=== PATIENT | male | born 1995 | race Caucasian/White ===

== ENCOUNTER 2019-02-24 14:43 | Emergency (ER) | payer OTHER ==
[2019-02-24] MEDS ORDERED: DIPH,PERTUS(ACELL)TETVAC-LF 0.5 ML VIAL IM ONE (15:09)
[2019-02-24 15:12] VITALS: RESP 18; TEMP 98.2
--- NOTE | 2019-02-24 15:26 | XR ---
EXAMINATION TYPE: XR foot complete LT DATE OF EXAM: 02/24/2019 CLINICAL HISTORY: Laceration to left great toe from chainsaw TECHNIQUE: Frontal, lateral, and oblique images of the left foot are obtained. COMPARISON: None FINDINGS: There is no acute fracture/dislocation evident in the left foot. The joint spaces in the left foot appear within normal limits. Soft tissue laceration medial to the first distal metatarsal h ead is seen without osseous laceration or radiopaque foreign body. Incidentally noted Chin's toe. IMPRESSION: Soft tissue laceration medial to the distal first metatarsal head without osseous lacerat ion or radiopaque foreign body.
[2019-02-24] MEDS ORDERED: LIDOCAINE 1% INJ 10MG/ML (20 ML MDV) SQ ONE (15:32)
--- NOTE | 2019-02-24 16:28 | ED ---
Wound/Laceration HPI - General Chief Complaint: Wound/Laceration Stated Complaint: Foot laceration W/Chainsaw Time Seen by Provider: 02/24/19 15:16 Source: patient Mode of arrival: ambulatory Limitations: no limitations - History of Present Illness Initial Comments: Patient is a 24-year-old male presenting to emergency Department with complaints of a laceration to the top of his left foot. Patient states he was trimming some small trees when the chainsaw he was using slipped and he hit the top of his left foot. Patient states he was wearing thick boots when this happened. Patient has a laceration to the top of his left foot, near his big toe. Bleeding is controlled at this time. Patient is not sure of his last tetanus vaccine. Patient denies being on blood thinners. He has no other complaints at this time. Upon arrival to the ER, vital signs are stable. - Related Data Previous Rx's Medication Instructions Recorded Cephalexin [Keflex] 500 mg PO BID 3 Days #6 cap 02/24/19 Allergies Allergy/AdvReac Type Severity Reaction Status Date / Time No Known Allergies Allergy Verified 02/24/19 15:12 Review of Systems ROS Statement: Those systems with pertinent positive or pertinent negative responses have been documented in the HPI. ROS Other: All systems not noted in ROS Statement are negative. Past Medical History Past Medical History: No Reported History History of Any Multi-Drug Resistant Organisms: None Reported Past Surgical History: No Surgical Hx Reported Past Psychological History: ADD/ADHD Smoking Status: Never smoker Past Alcohol Use History: None Reported Past Drug Use History: None Reported General Exam - General Exam Comments Initial Comments: GENERAL: Well-appearing, well-nourished and in no acute distress. HEAD: Atraumatic, normocephalic. EYES: Pupils equal round and reactive to light, extraocular movements intact, sclera anicteric, conjunctiva are normal. ENT: TMs normal, nares patent, oropharynx clear without exudates. Moist mucous membranes. NECK: Normal range of motion, supple without lymphadenopathy or JVD. LUNGS: Breath sounds clear to auscultation bilaterally and equal. No wheezes rales or rhonchi. HEART: Regular rate and rhythm without murmurs, rubs or gallops. EXTREMITIES: Normal range of motion of his left toes, foot, ankle. Neurovascular intact. NEUROLOGICAL: Cranial nerves II through XII grossly intact. Normal speech, normal gait. PSYCH: Normal mood, normal affect. SKIN: Warm, Dry, normal turgor, no rashes. Patient has a 4 cm laceration to the dorsal aspect of his left foot, proximal to his first toe. Bleeding is controlled at this time. Limitations: no limitations Course Vital Signs 02/24/19 02/24/19 15:10 16:39 Temperature 98.2 F Pulse Rate 95 80 Respiratory 18 18 Rate Blood Pressure 136/18 120/78 O2 Sat by Pulse 97 98 Oximetry Procedures - Laceration Laceration #1 Consent Obtained: verbal consent Indication: laceration Site: foot (Left dorsal foot, proximal to the first toe) Size (cm): 4 Description: linear, irregular Depth: simple, single layer Anesthetic Used: lidocaine 1% Anesthesia Technique: local infiltration Amount (mls): 4 Pre-repair: irrigated extensively Type of Sutures: nylon Size of Sutures: 4-0 Number of Sutures: 6 Technique: simple, interrupted Patient Tolerated Procedure: well Medical Decision Making - Medical Decision Making Patient is a 24-year-old male presenting with a 4 cm laceration to dorsal aspect of his left foot, just proximal to the first toe. X-rays reveal no acute fractures, bony lesions, foreign bodies. Wound was irrigated and closed with 6, 4-0 sutures. Topical antibiotic and bandage was applied. Patient tolerated procedure well. Tetanus vaccine was updated today. Patient will also be placed on Keflex for prophylactic. Patient is agreement this plan of care. Stitches states removed in 7-10 days. Disposition Clinical Impression: Laceration of left foot excluding toes Disposition: HOME SELF-CARE Condition: Stable Instructions (If sedation given, give patient instructions): Care For Your Stitches (ED), Laceration (ED) Additional Instructions: Please return to the Emergency Department if symptoms worsen or any other concerns. May use ice for pain and swelling. Take Motrin for pain relief. Take antibiotic as prescribed. Stitches need to be removed in 7-10 days. Keep wound covered while working. Prescriptions: Cephalexin [Keflex] 500 mg PO BID 3 Days #6 cap Is patient prescribed a controlled substance at d/c from ED?: No Referrals: Rocky Kyle MD [Primary Care Provider] - 1-2 days
[2019-02-24 16:41] VITALS: BP 120/78; PULSE 80
== END 2019-02-24 16:39 | disposition home or self-care (01) ==
LOC: EC 14:43
DX: S91.312A Laceration without foreign body, left foot, initial encounter (principal); Z23 Encounter for immunization; W27.8XXA Contact with other nonpowered hand tool, initial encounter; Y93.H2 Activity, gardening and landscaping; Y92.89 Other specified places as the place of occurrence of the external cause
CPT/HCPCS: 73630; 90715; 99283; 12002; 90471; J2001